=== PATIENT | male | born 1970 | race African-American/Black ===

== ENCOUNTER 2017-07-06 13:42 | Emergency (ER) | payer SELFPAY ==
[~2017-07-06] VITALS: Ht 175.3 cm; Wt 82.0 kg
[2017-07-06 14:13] VITALS: BP 123/75
== END 2017-07-06 21:23 | disposition left against medical advice (07) ==
LOC: ER 14:13
DX: M25.511 Pain in right shoulder (principal); Z53.21 Procedure and treatment not carried out due to patient leaving prior to being seen by health care provider